=== PATIENT | male | born 1970 | race Caucasian/White ===

== ENCOUNTER → 2020-04-13 10:23 | Outpatient (CLI) | payer OTHER, SELFPAY ==
--- NOTE | 2020-04-13 | DI.MRI.S_ITS ---
PROCEDURE: MR WRIST LT W CON INDICATIONS: Other subluxation of left wrist and hand, initial TECHNIQUE: After the administration of 3-4 mL of dilute intra-articular Gadolinium contrast into the radiocarpal compartment, coronal T1 spin echo with fat saturation and T2 fast spin echo with fat saturation, axial T1 spin echo and T2 fast spin echo with fat saturation, sagittal T1 spin echo with and without fat saturation through the wrist. COMPARISON: [facility] [place], [place], XR WRIST 3+ VIEWS LEFT, 07/28/2019, 9:04. [facility], , [place] WRIST INJECTION MR/CT LT, 04/13/2020, 9:47. FINDINGS: Image quality: Excellent. Bones and cartilage: The carpal bones are normally aligned. No bone marrow contusions or fractures. No evidence for avascular necrosis. Mild degenerative cystic changes are seen in the triquetrum. There is neutral ulnar variance. Carpal ligaments: The scapholunate and lunotriquetral ligaments appear intact, without gadolinium extravasation into the mid-carpal compartment. Triangular fibrocartilage complex: There is a small perforation in the central triangle fibrocartilage disc (image 10 of series 4). Radiocarpal contrast material communicates with the distal radial ulnar joint. Tendons and soft tissues: The carpal tunnel structures appear normal, including the median nerve. The ulnar nerve appears normal within Guyon's canal. All six extensor tendon compartments demonstrate normal morphology, without pathologic tendon sheath fluid. No soft tissue ganglion cysts. IMPRESSION: Small central perforation in the central triangle fibrocartilage disc. Radiocarpal contrast material is seen extending into the distal radial ulnar joint. Dictated by: Nilton Rincon M.D. on 04/13/2020 at 14:56 Approved by: Nilton Rincon M.D. on 04/13/2020 at 15:02
--- NOTE | 2020-04-13 | DI.RAD.S_ITS ---
PROCEDURE: [place] WRIST INJECTION MR/CT LT INDICATIONS: Other subluxation of left wrist and hand, initial COMPARISON: [facility] [place], CR, XR WRIST 3+ VIEWS LEFT, 07/28/2019, 9:04. TECHNIQUE: After informed consent had been obtained, the wrist was examined fluoroscopically, and a site chosen for injection of the radiocarpal compartment from a dorsal approach. Skin was prepped and draped in a sterile fashion and 1% lidocaine infiltrated from the skin down to the articular surface. A hypodermic needle was then introduced into the articular space and a modest amount of contrast medium was instilled confirming intra-articular needle tip placement. This was followed by approximately 4 mL of a dilute gadolinium solution. Needle was removed and dressing was applied. The patient experienced no complications throughout the procedure and left the fluoroscopic suite in no apparent distress. FINDINGS: A single fluoroscopic spot image demonstrates intra-articular location to injected iodinated contrast. IMPRESSION: Successful fluoroscopic-guided administration of dilute Gadolinium solution for wrist MR arthrogram. Dictated by: Thomas Byrnes M.D. on 04/13/2020 at 12:45 Approved by: Thomas Byrnes M.D. on 04/13/2020 at 12:46
== END ==
PROVIDERS: PCP Physician Assistant Medical; Referring Provider Physician Assistant Medical; Visit Provider Orthopaedic Surgery
DX: S63.092A Other subluxation of left wrist and hand, initial encounter (principal); X58.XXXA Exposure to other specified factors, initial encounter
CPT/HCPCS: 20605; 73222; 76000